=== PATIENT | male | born 1995 | race Caucasian/White ===

== ENCOUNTER 2024-09-25 21:15 | Emergency (ER) | payer SELFPAY ==
[~2024-09-25] VITALS: Ht 165.1 cm; Wt 86.3 kg
[2024-09-25 21:20] VITALS: O2SAT 97
[2024-09-25] MEDS ORDERED: KETOROLAC 15MG/ML VIAL IM ONE (22:00)
[2024-09-25] MEDS ORDERED: LIDO700A15 TP (22:32)
[2024-09-25] MEDS ORDERED: NAPR-1176 MT (22:32)
[2024-09-25] MEDS: KETOROLAC 15MG/ML VIAL IM NR (23:44)
[2024-09-26 00:15] VITALS: BP 121/69; PULSE 84; RESP 20; TEMP 37.05852; O2SAT 100
== END 2024-09-26 00:15 | disposition home or self-care (01) ==
LOC: ER 21:15
DX: S93.409A Sprain of unspecified ligament of unspecified ankle, initial encounter (principal); Z79.1 Long term (current) use of non-steroidal anti-inflammatories (NSAID); W23.0XXA Caught, crushed, jammed, or pinched between moving objects, initial encounter; Y93.89 Activity, other specified; Y92.89 Other specified places as the place of occurrence of the external cause; Y99.8 Other external cause status
CPT/HCPCS: 99283; 73630; 96372; J1885